=== PATIENT | female | born 1955 | race Caucasian/White ===

== ENCOUNTER → 2016-12-05 | Outpatient (CLI) | payer OTHER ==
--- NOTE | 2016-12-06 07:54 | MAMMOGRAPHY REPORT ---
BILATERAL DIGITAL SCREENING MAMMOGRAM TOMOSYNTHESIS WITH CAD: 12/05/2016 CLINICAL HISTORY: Routine screening. Patient has no complaints. TECHNIQUE: Bilateral breast tomosynthesis in addition to standard 2D mammography was performed. Curre nt study was also evaluated with a Computer Aided Detection (CAD) system. COMPARISON: Comparison is made to exams dated: 11/04/2015 mammogram, 07/03/2013 mammogram, 07/27/2010 [facility], 04/28/2007, 04/28/2007, and 04/28/2007. BREAST COMPOSITION: There are scattered areas of fibroglandular density in both breasts. FINDINGS: There are stable nodular asymmetries in the left breast. No new suspicious mass, architec tural distortion or cluster of microcalcifications is seen. IMPRESSION: ACR BI-RADS CATEGORY 1: NEGATIVE There is no mammographic evidence of malignancy. A 1 year screening mammogram is recommended. The pa tient will receive written notification of the results. Approximately 10% of breast cancers are not detected with mammography. A negative mammographic report should not delay biopsy if a clinically suggestive mass is present. Bere Aquino M.D. ay/:12/05/2016 12:44:08 Medical Billing Coder: Kailey Merritt [facility] letter sent: Normal 1/2 BI-RADS Code: ACR BI-RADS Category 1: Negative
== END | disposition home or self-care (01) ==
LOC: C.MAMM 12:20
PROVIDERS: ATTEND Obstetrics & Gynecology
DX: Z12.31 Encounter for screening mammogram for malignant neoplasm of breast (principal)

== ENCOUNTER → 2016-12-14 | Outpatient (CLI) | payer OTHER | END | disposition home or self-care (01) | LOC: C.PAPS 14:09 | PROVIDERS: ATTEND Obstetrics & Gynecology | DX: Z01.419 Encounter for gynecological examination (general) (routine) without abnormal findings (principal) ==

== ENCOUNTER 2019-12-23 10:33 | Observation (INO) ==
--- NOTE | 2019-11-18 16:20 | PAT Medication Instructions ---
Medication Instructions Date of Service November 18, 2019 Home Medications meloxicam 7.5 mg tablet 7.5 mg PO QAM fiber 1 dose PO DAILY multivitamin 1 tab PO QAM spironolacton-hydrochlorothiaz 1 tab PO QPM ASK your surgeon for instructions meloxicam 7.5 mg tablet 7.5 mg PO QAM DO NOT take the morning of surgery fiber 1 dose PO DAILY multivitamin 1 tab PO QAM Take evening before surgery spironolacton-hydrochlorothiaz 1 tab PO QPM OTHERWISE NOTHING TO EAT OR DRINK AFTER MIDNIGHT Other Notes If you have any questions please call us at [phone] or [phone] or [phone] or [phone]
--- NOTE | 2019-11-19 12:35 | Anesthesiology Consultation ---
Date of Service November 19, 2019 Assessment & Plan (1) Encounter for pre-operative examination: Chart Review Chart Review: Acceptable Risk for Surgery (pending preop Covid testing ) and Patient seen in Pre Admission Testing Instructed patient to not travel out of state unless under emergent circimstances. Educated patient to follow up with surgeon's office regarding Covid testing. Educated on importance of self quarantining, social distancing and wearing mask in public both for the patient and household contacts. Teaching & Discussion Pre-Anesthesia Teaching/Discussion Notes: Instructed NPO after midnight before surgery,except medications with 15 cc of water. Medication instructions provided according to the PAT guidelines. History Surgery Operation Date: 12/23/19 10:55 Proposed Procedures p Right Total Knee Arthroplasty - Sukh Garcia MD Height/Weight Height: 5 ft 8 in Weight: 128.5 kg Allergies Allergy/AdvReac Type Severity Reaction Status Date / Time naproxen [From Naprosyn] Allergy Unknown Verified 11/18/19 11:21 Penicillins Allergy Rash Verified 11/18/19 11:21 Medications Home Medications Medication Instructions Recorded Confirmed Last Taken meloxicam 7.5 mg tablet 7.5 mg PO QAM 06/08/19 11/18/19 Unknown fiber 1 dose PO DAILY 11/18/19 11/18/19 Unknown multivitamin 1 tab PO QAM 11/18/19 11/18/19 Unknown spironolacton-hydrochlorothiaz 1 tab PO QPM 11/18/19 11/18/19 Unknown Past Medical History Medical History Fluid retention in legs reason for spironolactone-hctz Frequent UTI No current issues GERD (gastroesophageal reflux disease) diet controlled Osteoarthritis Exercise / Class Metabolic Activity II 4-5 Yardwork/Stairs/Walk up hill (one flight of stairs - no chest pain or SOB ) Past Family History Family History Son , Passed 2006 @ 33 yo No problems noted. Other No family history of adverse response to anesthesia Past Surgical History Surgical History H/O wisdom tooth extraction History of cholecystectomy History of D&C Past Anesthesia History No Hx of Anesthesia Complications and No Family Hx of Anesthesia Complications History of PONV No Hx of PONV and Hx of Motion Sickness (usually in a boat on the ocean ) Social History Smoking Status: Former smoker Do You Dip or Chew Tobacco: No Smoking End Date: 40 years ago Hx Alcohol Use: No Hx Substance Use: No Review of Systems Patient denies chest pain, shortness of breath, dyspnea on exertion, cough, wheezing, palpitations. No hx of seizures, stroke, OH, apnea/snoring. No hx of blood clots or blood transfusions Physical Exam Vital Signs VITALS BP 118/66 P 68 TEMP 98.2 SP02 94% RESP 16 Constitutional + morbidly obese; no acute distress ENMT Mouth: + small oral opening; no TMJ clicking Thyromental Distance: > or= 3.5 Finger Breadths (3.5) Mallampati Class: I Missing molars Neck + thick neck; neck extension not limited Respiratory normal respiratory effort; no respiratory distress Auscultation: lungs clear to auscultation bilaterally; no wheezes Cardiovascular Rate/Rhythm: regular rate and regular rhythm Heart Sounds: no murmur Vessels: no carotid bruit Musculoskeletal Spine: no pain with cervical ROM Neurologic moves all extremities Psychiatric Orientation: alert Testing Laboratory Results 11/19/19 12:46 11/19/19 13:35 PT 10.5 Seconds (9.0-12.0) 11/19/19 12:46 INR 1.0 (0.9-1.1) 11/19/19 12:46 APTT 26.8 Seconds (21.0-31.0) 11/19/19 12:46 Blood Type O Positive 11/19/19 12:46 Antibody Screen NEGATIVE 11/19/19 12:46 Electrocardiogram Date: 11/19/19 Findings: + NSR @ (69) Chest X-Ray Date: 11/19/19 Findings: + NAD There is mild elevation of the right hemidiaphragm and bibasilar atelectasis
--- NOTE | 2019-11-19 13:10 | XRay Report ---
TWO VIEW CHEST CLINICAL HISTORY: Preoperative examination. FINDINGS: PA and lateral chest radiographs are obtained. No prior studies are available for compariso n at the time of dictation. The cardiomediastinal silhouette is unremarkable noting atherosclerotic calcification of the thoracic aorta. There is mild elevation of the right hemidiaphragm and bibasilar atelectasis. No airspace consolidation or pleural effusion is seen. There is no pneumothorax. The sk eletal structures are osteopenic. The bony thorax appears intact. Degenerative changes noted througho ut the thoracic spine and in the left shoulder. IMPRESSION: No active disease in the chest. ACT 112: Negative or not required by law. Electronically signed by: Paresh Bonilla M.D. 11/19/2019 1:08 PM
[2019-11-19 14:13] LABS: Basophils # (auto) 0.02 K/uL (0-0.2); Basophils % (auto) 0.3 %; Eosinophils % (auto) 1.6 %; Immature Granulocytes # (auto) 0.02 K/uL (0.00-0.02); Immature Granulocytes % (auto) 0.3 %; Lymphocytes # (auto) 1.16 K/uL (1.2-3.4); Lymphocytes % (auto) 18.5 %; Mean Corpuscular Hemoglobin 29.8 pg (25-34); Mean Corpuscular Volume 85.1 fL (80-100); Mean Platelet Volume 11.3 fL (7.4-10.4); Monocytes # (auto) 0.52 K/uL (0.11-0.59); Monocytes % (auto) 8.3 %; Neutrophils # (auto) 4.44 K/uL (1.4-6.5); Platelet Count 304 K/uL (130-400); RDW Coefficient of Variation 14.2 % (11.5-14.5); RDW Standard Deviation 44.2 fL (36.4-46.3); White Blood Count 6.26 K/uL (4.8-10.8)
[2019-11-19 14:23] LABS: BUN Creatinine Ratio 15.9 (10-20); Calcium 9.3 mg/dl (8.5-10.1); Creatinine Clr Calc Pharmacy 103.2 ml/min; Est GFR (African American) 93.9; Potassium 3.9 mmol/L (3.5-5.1)
[2019-11-19 14:29] LABS: Partial Thromboplastin Time 26.8 Seconds (21.0-31.0); Prothrombin Time 10.5 Seconds (9.0-12.0)
--- NOTE | 2019-11-20 05:03 | Electrocardiogram Report ---
Test Reason : Blood Pressure : / mmHG Vent. Rate : 069 BPM Atrial Rate : 069 BPM P-R Int : 180 ms QRS Dur : 084 ms QT Int : 408 ms P-R-T Axes : 077 070 067 degrees QTc Int : 437 ms Normal sinus rhythm Normal ECG No previous ECGs available Confirmed by Elder Hurtado ([id number]) on 11/20/2019 5:02:54 AM Referred By: Sukh Garcia Confirmed By:Elder Hurtado
--- NOTE | 2019-12-19 13:23 | History and Physical Report ---
DATE OF ADMISSION: 12/23/2019 CHIEF COMPLAINT: Persistent right knee pain and discomfort. HISTORY OF PRESENT ILLNESS: The patient is a 64-year-old female who presents for surgical treatment of her right knee. She has a long history of right knee pain and discomfort. I have been following her for quite some time. She has been through extensive conservative treatment including injections which have become less successful over time. Last shot did not help much at all. Pain has become more disabling. The more she walks, the more it hurts. She has got a valgus deformity to her knee, which is worse with weightbearing and feels it is unstable. She would like to have her knee fixed. PAST MEDICAL HISTORY: 1. Gastroesophageal reflux disease. 2. Obesity with a BMI of 43. PAST SURGICAL HISTORY: Cholecystectomy. ALLERGIES: PENICILLIN, WHICH CAUSES A RASH. No breathing problems. CURRENT MEDICATIONS: Include; 1. Spironolactone once a day. 2. Meloxicam. SOCIAL HISTORY: A 64-year-old female. She is from [place]. Does not smoke. No alcohol intake. FAMILY HISTORY: Noncontributory. REVIEW OF HISTORY: Negative for diabetes, neurologic problem, vascular problems or bleeding disorders. No chest pain or shortness of breath. No history of DVT or PE. PHYSICAL EXAMINATION: GENERAL: Shows a pleasant, middle-aged female. Looks to be in pretty good health. HEENT: Benign. NECK: Supple with no lymphadenopathy. LUNGS: Clear to auscultation. HEART: Has a regular rate and rhythm. ABDOMEN: Soft, nontender, nondistended. EXTREMITIES: Grossly neurovascularly intact except as follows. Examination of the right leg reveals the patient ambulates independently. She has got valgus alignment to her knee, which is increased with weightbearing. She is tender over the lateral joint line. Small knee effusion. Range of motion is 5-10 degrees, show full extension to about 120 degrees of flexion. There is no hip pain. She is neurologically intact. X-RAYS: X-rays of the right knee reviewed. Shows advanced right knee DJD. She has got advanced lateral compartment disease, worse on the 40-degree flexion films. She has got osteophytes primarily in the lateral compartment. ASSESSMENT: A 64-year-old female with advanced right knee lateral compartment degenerative joint disease. She has failed conservative treatment and would like to have her right knee replaced. PLAN: We will take her to the operating room and do right total knee replacement. The risks and benefits of this procedure were explained to the patient including but not limited to DVT, PE, , infection, neurological injury, vascular injury, bleeding problem, pain, limited range of motion, stiffness, failure to relieve symptoms, incomplete relief of symptoms, need for further surgery in future, fracture, leg length inequality, nerve palsy, persistent pain. The patient understands and desires to proceed. Informed consent was obtained. As far as discharge plan, she is planning to be discharged home using [facility] home health program. She knows to hold her meloxicam 10 days preop. She has got some varicose veins, but no history of thrombosis. We will use aspirin and TEDs for DVT prophylaxis.
[~2019-12-23 10:33] MED LIST: ACETAMINOPHEN 500 MG TAB PO SCH; BUPIVACAINE 0.25% 30 ML VIAL ONE; BUPIVACAINE 0.5 % 5 MG/1 ML PF 10ML VIAL ONE; BUPIVACAINE LIPOSOME/PF 266 MG, BUPIVACAINE/EPINEPHRINE 50 ML, SODIUM CHLORIDE 0.9% 30 ... INFIL SCH; FAMOTIDINE 20 MG TAB PO SCH; GABAPENTIN 300 MG CAP PO SCH; LR 15ML/HR IV SCH; LR 60ML/HR IV SCH; METOCLOPRAMIDE HCL 10 MG TABLET PO SCH; TRANEXAMIC ACID 1,000 MG **IV Intra-op IV SCH
--- NOTE | 2019-12-23 11:09 | History & Physical Bridge Note ---
Date of Service December 23, 2019 History & Physical Bridge Note I have examined the patient, reviewed the History & Physical and in the interval since the performance of the History & Physical I have noted the following changes of clinical significance: no changes noted
[2019-12-23] MEDS ORDERED: CEFAZOLIN 3000MG/72.5 ML BAG IV ONE (11:37)
[2019-12-23] MEDS ORDERED: MIDAZOLAM HCL 1 MG/ML 2ML VIAL ONE ×3 (12:01→12:19)
[2019-12-23] MEDS ORDERED: ONDANSETRON INJ 2 MG/ML 2 ML VIAL IV PRN ×2 (12:05→17:07)
[2019-12-23] MEDS ORDERED: fentaNYL citrate 100 MCG/2 ML VIAL IV PRN (12:05)
[2019-12-23] MEDS ORDERED: ATROPINE SULFATE 0.1 MG/ML 10ML SYR IV PRN (12:05)
[2019-12-23] MEDS ORDERED: ePHEDrine sulfate 50 MG/ML AMP IV PRN (12:05)
[2019-12-23] MEDS ORDERED: PROPOFOL IV EMULSION 10 MG/ML 20 ML VIAL IV ONE (12:37)
[2019-12-23] MEDS ORDERED: LIDOCAINE HCL 2% 2 ML VIAL/AMP(20MG/ML) INFIL ONE (12:37)
[2019-12-23] MEDS ORDERED: BACITRACIN INJ 50,000 UNIT VIAL ONE (13:22)
[2019-12-23] MEDS ORDERED: BUPIVACAINE LIPOSOME 1.3% 266 MG/20 ML VIAL ONE (13:22)
[2019-12-23] MEDS ORDERED: SODIUM CHLORIDE 0.9% PF 50 ML VIAL ONE (13:22)
[2019-12-23] MEDS ORDERED: BUPIVACAINE/EPINEPHRINE 0.25% 1:200,000 30 ML VIAL ONE (13:22)
--- NOTE | 2019-12-23 15:32 | Post Operative Brief Note ---
PG Immediate Post Op with CF Date of Surgery December 23, 2019 Pre & Post Diagnosis Operation Date: 12/23/19 12:45 Pre-Op Diagnosis: Right Knee Degenerative Joint Disease, Knee Pain Post-Op Diagnosis: Right Knee Degenerative Joint Disease, Knee Pain I identified the patient and participated in the time-out.: Yes Procedure Operation Date: 12/23/19 12:45 Actual Procedures p Right Total Knee Arthroplasty(Right) - Sukh Garcia MD Surgeon Sukh Garcia MD Spray Maker Farida, [facility] Estimated Blood Loss 50 Findings Consistent with Post-Op Diagnosis Fluids 1600 cc Specimens Specimen Description: Permanent Specimen: A) Right Knee Bone and Tissue Drains Young Catheter Anesthesia Type Spinal MAC Complications none Disposition Accompanied Patient To Recovery: No Disposition: Recovery Room
--- NOTE | 2019-12-23 16:19 | XRay Report ---
TWO VIEWS RIGHT KNEE CLINICAL HISTORY: Postoperative examination. FINDINGS: AP and crosstable lateral portable views of the right knee are obtained. A right knee arthr oplasty is in near anatomic alignment. There has been undersurface remodeling of the patella. No acut e fracture is seen. There are expected postoperative changes around the knee including skin clips, so ft tissue edema, and subcutaneous gas. IMPRESSION: Expected postoperative changes status post right knee arthroplasty. No acute fracture is seen. ACT 112: Negative or not required by law. Electronically signed by: Paresh Bonilla M.D. 12/23/2019 4:18 PM
--- NOTE | 2019-12-23 16:29 | Anesthesiology Progress Note ---
Date of Service December 23, 2019 Anesthesia Post Procedure Vital Signs Vital Signs: Temp Pulse Resp BP Pulse Ox 12/23/19 16:25 70 14 148/68 H 96 12/23/19 16:15 70 14 120/62 95 12/23/19 16:05 72 17 124/69 93 12/23/19 15:55 70 12 106/66 95 12/23/19 15:45 75 18 111/57 L 99 12/23/19 15:39 36.8 C 76 18 119/58 L 98 12/23/19 11:53 88 16 148/71 H 95 12/23/19 11:01 36.8 C 93 H 20 143/84 H 93 Transfer of Care Handoff Completed per policy Notes Mental Status: alert / awake / arousable and participated in evaluation Patient Amnestic to Procedure: Yes Nausea / Vomiting: adequately controlled Pain: adequately controlled Airway Patency, RR, SpO2: stable & adequate BP & HR: stable & adequate Hydration State: stable & adequate Neuraxial Anesthesia: was administered and sensory block is resolving Anesthetic Complications: no major complications apparent and Pt Satisfied with anesthetic care
[2019-12-23] MEDS ORDERED: NALOXONE HCL 0.4 MG/1 ML VIAL/CARP IV PRN (17:07)
[2019-12-23] MEDS ORDERED: bisacodyL 10 MG SUPP PR PRN (17:07)
[2019-12-23] MEDS ORDERED: MAGNESIUM HYDROXIDE SUSP 30 ML UDC PO PRN (17:07)
[2019-12-23] MEDS ORDERED: METOCLOPRAMIDE HCL INJ 5 MG/ML 2 ML VIAL IV PRN (17:07)
[2019-12-23] MEDS ORDERED: ALUMINUM/MAGNESIUM SUSP 30 ML UDC PO PRN (17:07)
[2019-12-23] MEDS ORDERED: HYDROmorphone INJ 0.5 MG/0.5 ML SYR IV PRN (17:07)
[2019-12-23] MEDS: SODIUM CHLORIDE 0.9% 1000ML 1,000 ML IV SCH (17:28)
--- NOTE | 2019-12-23 17:33 | Operative Report ---
Post Operative Report Pre & Post Diagnosis Operation Date: 12/23/19 12:45 Pre-Op Diagnosis: Right Knee Degenerative Joint Disease, Knee Pain Post-Op Diagnosis: Right Knee Degenerative Joint Disease, Knee Pain I identified the patient and participated in the time-out.: Yes Procedure Operation Date: 12/23/19 12:45 Actual Procedures p Right Total Knee Arthroplasty(Right) - Sukh Garcia MD Surgeon Sukh Garcia MD Air Valve Repairer Farida, PAC Estimated Blood Loss 50 Findings Consistent with Post-Op Diagnosis Operative findings revealed advanced right knee DJD. She had fairly extensive grade 4 changes in all 3 compartments. Some slight eburnation of the lateral femoral condyle and little of the lateral tibial plateau. She had pretty extensive grade 4 changes with without eburnation of the medial compartment. She has significant joint effusion. Her clinical findings/anatomic findings at the time of surgery were significantly worse than the anticipated based on her radiographs. Fluids 1600 cc. Specimens Right knee sent for pathology. Drains None. Anesthesia Type Spinal MAC Complications none Disposition Accompanied Patient To Recovery: No Disposition: Recovery Room Indications Patient is a 64-year-old female has been followed for quite some time for right knee pain discomfort. She failed conservative care. X-rays revealed moderate to advanced knee DJD. She failed all conservative measures and was significantly debilitated by her disease. She elected proceed with total knee arthroplasty. Description of Procedure Operative implants consist of: 1. Biomet Vanguard size 65 right posterior stabilized femoral component. 2. Biomet size 71 tibial tray. 3. 10 mm posterior stabilized polyethylene insert. 4. 31 x 8 all poly-patella. The patient was taken to the operating room identified and placed on the op erating table supine position protectors were properly padded. IV antibiotics arrived by anesthesia team. A spinal anesthetic and abductor canal block had provided in the holding area. Young catheter was placed in sterile fashion. Right thigh turn was then placed in the right lower extremities and prepped and draped in usual sterile fashion. The right leg was elevated exsanguinated with use of an Esmarch and turns placed at 350 mmHg. An anterior approach to the right knee was then performed to longitudinal incision centered over the patella. Sharp dissection was cut through subcutaneous tissue down to the extensor mechanism. Medial parapatellar arthrotomy incision was made. Some subperiosteal dissection was carried out medially but the fat pad was dissected beneath patella tendon. Lateral patellofemoral ligament was released. The patella was subluxate laterally and the knee was flexed. The osteophytes were taken off distal femur for the ACL and PCL were then released from the distal femur and the tibia subluxate anteriorly. The external tibial alignment jig was then placed in the interface the tibia and adjusted 14 mm medially. Proximal tibial cut was made remove abou t 3 to 4 mm of bone from the medial side. We tried to not take too much bone due to her large size and poor bone quality and concern for component subsidence. The tibia was then sized to a size 71 in order to get maximum coverage and appropriate rotation. Attention drawn the femur. The distal femur then with a sharp drop with intramedullary canal was suction. A right 5 degree valgus cutting guide was placed. This femoral cutting block was pinned in place but distal femoral cut was made to take an additional 3 mm bone off distal femur. The femur was then sized to a size 65 for the AP cutting block was pinned parallel to the epicondylar axis which was 4 degrees of external rotation. The anterior cut, anterior chamfer, posterior cut, posterior chamfer cuts were made. Box cutting guide was placed and adjusted slightly lateral and the box cut was made. The knee was flexed. The remnants of the medial lateral menisci were excised. The osteophytes were taken off the posterior aspect of the femur. A trial femoral component was placed. The tibial tray was pinned in maximum external rotation and the drill and stem punch were used to create defect in proximal tip for the tibial tray. The knee was then trialed and the 10 mm insert fit most appropriately. Of note, we did release some the IT band and posterior capsule to release her lateral side which was tight initially. Great care was taken to protect the peroneal nerve at all times. Attention drawn the patella. The patella was cleaned of all/soft tissues. Patella thickness measured 23 mm in thickness was cut down to 14 but was sized to a size 31 patella. Locals were drilled for 31 patella. The lateral osteophytes removed. Patella button was placed. Knee was taken through range of motion patella tracked nicely with no thumbs test. Attention drawn to place the permanent components. All trial components removed. Bone plug was placed in the disc femur limit blood loss put a double batch Palacos G cement was mixed. A BiomD-Share Vanguard size 65 right posterior stabilized femoral component, a size 71 tibial tray, 10 mm Po stabilized polyethylene insert, and a 31 x 8 all poly-patella then cement in place. Knees brought out in full extension until cement hardened. Final cement check was then performed. Pericapsular tissues were injected with total 100 cc of combination twice of Exparel, 30 cc normal saline, 50 cc of quarter percent Marcaine with epinephrine. Patient did receive 1 g tranexamic acid. The tendon was then let down for final tourniquet time 61 minutes. Hemostasis assured use electrocautery. Extensor mechanism then closed with combination 1 PDS suture #1 Vicryl suture in [id number] fashion. Extensor mechanism checked found to be intact the subcutaneous tissue then closed with 2 Dexon suture in a buried interrupted fashion skin was closed skin jeana. Leg was then cleaned and dried a sterile dressing composed Xeroform, 4 x 4's, sterile cast padding, Colin bandage were applied. The patient was then transferred to the recovery room in stable condition. The patient tolerated procedure well no complications. Cb Iqbal my physician zoning assistant, was present for the entire procedure. His presence and assistance was required for proper positioning, prepping and draping, surgical exposure, performing the technical aspects of the operation, implanting the implants, closing the wound, and placement of the sterile bandage. I attest to the content of the Intraoperative Record and any orders documented therein. Any exceptions are noted below.
[2019-12-23] MEDS: KETOROLAC TROMETHAMINE 15 MG/ML VIAL IV SCH ×2 (17:37→23:41)
[2019-12-23] MEDS: Scopolamine CHECK PATCH PLACEMENT SCH ×2 (17:38→23:41)
[2019-12-23] MEDS: FERROUS GLUCONATE 324 MG TAB PO SCH (18:15)
[2019-12-23] MEDS: ASCORBIC ACID 500 MG TAB PO SCH (18:15)
[2019-12-23] MEDS: SENNA 8.6 MG TAB PO SCH (20:50)
[2019-12-23] MEDS: DOCUSATE SODIUM 100 MG CAP PO SCH (20:50)
[2019-12-23] MEDS: ACETAMINOPHEN 500 MG TAB PO SCH (20:50)
[2019-12-23] MEDS: TAPENTADOL HCL ER 50 MG TABCR PO SCH (20:50)
[2019-12-23] MEDS: SPIRONOLACTONE/HCTZ 25-25 PO SCH (20:50)
[2019-12-23] MEDS: ASPIRIN 81 MG ECTAB PO SCH (20:50)
[2019-12-23] MEDS: CEFAZOLIN 2000MG 2,000 MG/15 ML SYR IV SCH (21:10)
[2019-12-23] MEDS ORDERED: TRANEXAMIC ACID / 0.7% NACL 1,000 MG/100 ML BAG IV SCH (21:35)
[2019-12-23] MEDS: OXYCODONE HCL IR 5 MG TAB (IMMEDIATE RELEASE) PO PRN (23:40)
[2019-12-24] MEDS: SODIUM CHLORIDE 0.9% 1000ML 1,000 ML IV SCH (00:15)
[2019-12-24] MEDS: KETOROLAC TROMETHAMINE 15 MG/ML VIAL IV SCH ×3 (05:21→17:15)
[2019-12-24] MEDS: ACETAMINOPHEN 500 MG TAB PO SCH ×3 (05:21→21:34)
[2019-12-24] MEDS: OXYCODONE HCL IR 5 MG TAB (IMMEDIATE RELEASE) PO PRN ×3 (05:21→13:52)
[2019-12-24] MEDS: CEFAZOLIN 2000MG 2,000 MG/15 ML SYR IV SCH (05:22)
[2019-12-24 06:07] LABS: Hematocrit (blood only) 35.6 % (37-47); Hemoglobin 12.5 g/dL (12.0-16.0); Mean Corpuscular Hemoglobin 29.9 pg (25-34); Mean Corpuscular Hgb Conc 35.1 g/dL (32-36); Mean Corpuscular Volume 85.2 fL (80-100); Mean Platelet Volume 10.6 fL (7.4-10.4); Platelet Count 256 K/uL (130-400); RDW Coefficient of Variation 14.4 % (11.5-14.5); RDW Standard Deviation 44.4 fL (36.4-46.3); Red Blood Count 4.18 M/uL (4.2-5.4); White Blood Count 10.06 K/uL (4.8-10.8)
[2019-12-24 06:40] LABS: Creatinine Clr Calc Pharmacy 81.9 ml/min; Est GFR (African American) 71.9; Est GFR (Non-African American) 62.1; Potassium 3.3 mmol/L (3.5-5.1)
--- NOTE | 2019-12-24 07:18 | Orthopedic Progress Note ---
Date of Service December 24, 2019 Assessment & Plan (1) Status post total right knee replacement: Seen and examined by Dr. Garcia today. Pain is controlled. continue pt/ot, wbat dvt prophylaxis: teds, scds, , aspirin hypokalemia: will supplement potassium today d/c planning: likely home tomorrow with home health Admission and Anticipated Discharge Date Admission Date: December 23, 2019 Subjective 64 y/o female POD #1 from right total knee replacement. She's doing pretty well. pain is reasonably controlled. No chest pain or shortness of breath. Physical Exam Physical Exam: Alert and oriented. NAD. Right leg: dressings clean, dry, intact. NVI. Able to dorsiflex and plantarflex. Results & Data ([facility]) Vital Signs (Past 12 Hours) Vital Signs Temp Pulse Resp BP Pulse Ox 12/24/19 07:00 37.3 C 72 16 112/70 95 12/24/19 03:34 36.7 C 69 14 127/71 93 12/24/19 00:00 36.8 C 70 18 134/78 98 12/23/19 20:28 37.1 C 72 16 127/74 97 PG Care Time/CCT Total # of Minutes Spent Total Time Spent with Patient: Total time spent is greater than 50% in coord ination of care (as documented) at patient's floor/unit and/or counseling patient: Coding Level of Care Code None Diagnoses Status post total right knee replacement Z96.651
[2019-12-24] MEDS ORDERED: POTASSIUM CHLORIDE 20 MEQ TABCR PO ONE (07:19)
[2019-12-24] MEDS: MULTIVITAMIN TAB PO SCH (08:39)
[2019-12-24] MEDS: CALCIUM POLYCARBOPHIL 625MG TAB PO SCH (08:39)
[2019-12-24] MEDS: ASCORBIC ACID 500 MG TAB PO SCH ×2 (08:39→17:15)
[2019-12-24] MEDS: FERROUS GLUCONATE 324 MG TAB PO SCH ×2 (08:39→17:15)
[2019-12-24] MEDS: ASPIRIN 81 MG ECTAB PO SCH ×2 (08:40→20:11)
[2019-12-24] MEDS: DOCUSATE SODIUM 100 MG CAP PO SCH ×2 (08:40→20:10)
[2019-12-24] MEDS ORDERED: MULTIVITAMIN TAB PO SCH (09:00)
[2019-12-24] MEDS: TAPENTADOL HCL ER 50 MG TABCR PO SCH ×2 (09:01→20:10)
[2019-12-24] MEDS: Scopolamine CHECK PATCH PLACEMENT SCH ×2 (09:01→16:10)
[2019-12-24] MEDS ORDERED: POTASSIUM CHLORIDE 20 MEQ TABCR PO SCH (18:00)
[2019-12-24] MEDS: SPIRONOLACTONE/HCTZ 25-25 PO SCH (20:10)
[2019-12-24] MEDS: SENNA 8.6 MG TAB PO SCH ×2 (20:11→21:39)
[2019-12-25] MEDS: KETOROLAC TROMETHAMINE 15 MG/ML VIAL IV SCH ×3 (00:06→11:09)
[2019-12-25] MEDS: Scopolamine CHECK PATCH PLACEMENT SCH ×2 (00:06→07:17)
[2019-12-25] MEDS: ACETAMINOPHEN 500 MG TAB PO SCH (05:01)
[2019-12-25 06:17] LABS: BUN Creatinine Ratio 13.8 (10-20); Calcium 7.9 mg/dl (8.5-10.1); Creatinine Clr Calc Pharmacy 107.7 ml/min; Est GFR (African American) 100.2; Est GFR (Non-African American) 86.4; Potassium 3.8 mmol/L (3.5-5.1)
[2019-12-25] MEDS: OXYCODONE HCL IR 5 MG TAB (IMMEDIATE RELEASE) PO PRN (07:12)
[2019-12-25] MEDS: ASPIRIN 81 MG ECTAB PO SCH (07:15)
[2019-12-25] MEDS: DOCUSATE SODIUM 100 MG CAP PO SCH (07:15)
[2019-12-25] MEDS: CALCIUM POLYCARBOPHIL 625MG TAB PO SCH (07:15)
[2019-12-25] MEDS: FERROUS GLUCONATE 324 MG TAB PO SCH (07:16)
[2019-12-25] MEDS: ASCORBIC ACID 500 MG TAB PO SCH (07:16)
[2019-12-25] MEDS: MULTIVITAMIN TAB PO SCH (07:16)
[2019-12-25] MEDS: TAPENTADOL HCL ER 50 MG TABCR PO SCH (07:22)
--- NOTE | 2019-12-25 07:38 | Progress Notes ---
DATE: 12/25/2019 SUBJECTIVE: A 64-year-old white female postop day 2 from right knee replacement. She is doing pretty well. Pretty painful after therapy yesterday, but responded to the pain medicine and doing pretty well this morning. No chest pain or shortness of breath. Not feeling dizzy or lightheaded. OBJECTIVE: VITAL SIGNS: Temperature 36.8. Vital signs stable. EXTREMITIES: Examination of the right leg reveals the leg to be well aligned. Dressing is clean, dry and intact. No significant drainage. Calf is soft and supple. She is neurologically intact. ASSESSMENT: A 64-year-old white female postop day 2 from a right knee replacement, doing well. Pain is controlled. She is neurologically intact. PLAN: 1. DVT prophylaxis including thigh-high TEDs, SCDs, and aspirin twice a day. 2. PT/OT. Weightbear as tolerated. Right total knee protocol. 3. Pain control, doing well with current pain regimen. 4. Disposition: Plan to discharge to home with some home health later today.
--- NOTE | 2019-12-28 16:28 | Discharge Summary ---
Date of Service December 28, 2019 Admission HPI Per Admitting Provider Documented in the H & P Admission Exam (Per Admitting) Constitutional Documented in the H & P Discharge Data Consultations 12/23/19 17:07 Consult Case Management - Discharge Planning Routine Procedures Performed Operation Date: 12/23/19 12:45 Actual Procedures p Right Total Knee Arthroplasty(Right) - Sukh Garcia MD Hospital Course (1) Status post total right knee replacement: This patient is a 64 year old female admitted on 12/23/19 and underwent total knee replacement. She tolerated the procedure well and there were no complications. Transferred to the PACU post op and later to the orthopedic floor for further care. She was given ancef for antibiotic prophylaxis. She was also given BULMARO stockings, SCDs, and aspirin for DVT prophylaxis. Hemoglobin, hematocrit, and vital signs were monitored during her hospital stay and remained stable. Did not require any blood transfusions. There were no complications during their hospital stay. She did receive potassium supplement for hypokalemia By post op day #2 the patient was tolerating a regular diet, pain was reasonably controlled with oral pain medicine, and she was participating in physical therapy. On post op day #2 the patient was discharged home and set up with home health care. She was given printed discharge instructions including prescriptions for extra strength tylenol, aspirin, and oxycodone. Continue physical therapy, weight bearing as tolerated. Continue BULMARO stockings. Follow up approximately 2 weeks post op or sooner if there are problems or concerns. Coding Level of Care Code None Diagnoses Status post total right knee replacement Z96.651
== END 2019-12-25 11:20 | disposition home or self-care (01) ==
LOC: 3E 10:33 → ASU 10:33

== ENCOUNTER 2022-06-15 08:06 | Observation (INO) ==
--- NOTE | 2022-05-10 09:20 | PAT Medication Instructions ---
Medication Instructions Date of Service May 10, 2022 Home Medications Medication Instructions Recorded clindamycin HCl 300 mg capsule 300 mg PO ONCE 1 day #2 caps 04/11/21 fiber 1 dose PO DAILY multivitamin 1 tab PO QAM spironolactone 25 mg-hydrochlorothiazide 25 mg tablet 1 tab PO QPM clindamycin HCl 300 mg capsule 300 mg PO ONCE Continue as directed clindamycin HCl 300 mg capsule 300 mg PO ONCE DO NOT take the morning of surgery fiber 1 dose PO DAILY multivitamin 1 tab PO QAM Take evening before surgery spironolactone 25 mg-hydrochlorothiazide 25 mg tablet 1 tab PO QPM Other Notes NOTHING TO EAT OR DRINK AFTER MIDNIGHT. If you have any questions please call us at [phone] or [phone] or [phone] or [phone]
--- NOTE | 2022-05-18 10:43 | Anesthesiology Consultation ---
Date of Service May 18, 2022 Assessment & Plan (1) Encounter for pre-operative examination: - COVID screening: Per assessment on 05/18: No known COVID-19 positive contacts or current COVID-19 related symptoms. Travel screen negative. Patient vaccinated. At surgeon discretion if preop Covid testing being done. - S/P Right TKA (12/23/19): SAB at L4-5 (x1 attempt) + PNB at [facility]. No issues noted per post-op anesthesia progress note. - Outpatient joint assessment: Pt currently scheduled for inpatient pathway. If surgeon requests review for outpatient joint pathway, patient is not recommended candidate for outpatient joint program from anesthesia standpoint. Chart Review Chart Review: Acceptable Risk for Surgery and Patient seen in Pre Admission Testing Teaching & Discussion Pre-Anesthesia Teaching/Discussion Notes: Instructed NPO after midnight before surgery,except medications with 15 cc of water. Medication instructions provided according to the PAT guidelines. History Surgery Operation Date: 06/15/22 07:00 Proposed Procedures p Left Total Knee Arthroplasty - Sukh Garcia MD Height/Weight Height: 5 ft 8 in Weight: 130 kg Allergies Allergy/AdvReac Type Severity Reaction Status Date / Time Penicillins Allergy Intermediate Rash Verified 05/10/22 08:03 Medications Home Medications Medication Instructions Recorded Confirmed Last Taken fiber 1 dose PO DAILY 11/18/19 05/10/22 12/22/19 multivitamin 1 tab PO QAM 11/18/19 05/10/22 12/22/19 spironolactone 25 1 tab PO QPM 11/18/19 05/10/22 12/22/19 mg-hydrochlorothiazide 25 mg tablet clindamycin HCl 300 mg capsule 300 mg PO ONCE 1 day #2 caps 04/11/21 05/10/22 Unknown Past Medical History Medical History Fluid retention in legs reason for spironolactone-hctz Frequent UTI No current issues GERD (gastroesophageal reflux disease) diet controlled Heartburn diet control Left knee DJD Osteoarthritis Venous insufficiency compression hose Exercise / Class Metabolic Activity III < 4 Walking/Shop/Light housework Past Family History Family History Son , Passed 2006 @ 33 yo No problems noted. Other No family history of adverse response to anesthesia Past Surgical History Surgical History H/O wisdom tooth extraction History of cholecystectomy History of D&C History of total knee replacement Right TKA (12/23/19): SAB at L4-5 (x1 attempt) + PNB at [facility]. No issues noted per post-op anesthesia progress note. Past Anesthesia History No Hx of Anesthesia Complications and No Family Hx of Anesthesia Complications History of PONV No Hx of PONV and Hx of Motion Sickness Social History Smoking Status: Never smoker Do You Dip or Chew Tobacco: No Hx Alcohol Use: No Hx Substance Use: No substance use type: does not use Review of Systems Patient denies chest pain, shortness of breath, fever, chills, cough, wheezing, palpitations. Physical Exam Vital Signs VITALS BP 136/75 P 68 TEMP 98.1 SP02 97%RA RESP 18 PHYSICAL Full cervical extension range of motion. Full TMJ range of motion. TMD 3 finger breaths Mallampati Score 1 Dentition: intact Lungs: clear throughout to auscultation Cardiac: regular rate and rhythm, no murmurs noted Spine: normal Carotid arteries: negative bruit Extremities: no edema Lab Results Anesthesia Preop Results Results Anesthesia Widget: WBC 5.62 K/ul (4.8-10.8) 05/18/22 Hgb 14.3 g/dl (12.0-16.0) 05/18/22 Hct 41.2 % (34.1-44.9) 05/18/22 Plt 255 K/uL (130-400) 05/18/22 Na 138 mmol/L (136-145) 05/18/22 K 4.4 mmol/L (3.5-5.1) 05/18/22 Cl 103 mmol/L (98-107) 05/18/22 CO2 29 mmol/L (21-32) 05/18/22 BUN 16 mg/dl (6-23) 05/18/22 Creat 0.76 mg/dl (0.6-1.2) 05/18/22 Glucose Level 104 mg/dl (70-99(Fasting)) H 05/18/22 PT 10.3 Seconds (9.0-12.0) 05/18/22 PTT 24.8 Seconds (21.0-31.0) 05/18/22 INR 1.0 (0.9-1.1) 05/18/22 Blood Type O Positive 05/18/22 Antibody Screen NEGATIVE 05/18/22 Testing Electrocardiogram Date: 05/18/22 NSR at 63bpm. Chest X-Ray Date: 05/18/22 FINDINGS: Cardiac mediastinal and hilar silhouettes are within normal limits. No pneumothorax, pleural effusion, airspace consolidation or overt pulmonary edema. Degenerative changes of the shoulders and spine. Cholecystectomy. IMPRESSION: No acute process. COVID-19 Risk Screen Screening Information COVID-19 Screen Date: 05/18/22 Exposure 21 Days Family/Household +COVID Last 21 Days: No Exposure 10 Days Any COVID Exposure Last 10 Days: No Symptoms Last 10 Days Experienced COVID Sx Last 10 Days: No + COVID 0-90 Days COVID + in Last 0-90 Days: No
--- NOTE | 2022-06-09 18:32 | History and Physical Report ---
CHIEF COMPLAINT: Left knee pain. HISTORY OF PRESENT ILLNESS: The patient is a 66-year-old female well known to me from previous right knee replacement done 2-1/2 years ago. The right knee is doing well. She continues to be bothered by left knee pain and discomfort that has gradually gotten worse over time. She has had conservative care including oral medicines and injection, which provided with pretty minimal relief. Pain is hannah bal. The more she is up and on it, the more it hurts. She limps more as the day goes on. She would like to have her left knee fixed. PAST MEDICAL HISTORY: Past medical history is significant for: 1. Gastroesophageal reflux disease. 2. Obesity, BMI of 44. 3. Low back pain/sciatica. PAST SURGICAL HISTORY: Includes; 1. Cholecystectomy. 2. Right knee replacement done 12/23/2019. ALLERGIES: PENICILLIN, WHICH CAUSES A RASH A CHILD. No respiratory problems. CURRENT MEDICATIONS: Include; 1. Vitamins. 2. Unspecified diuretic. SOCIAL HISTORY: She is a 66-year-old female. She is . Does not smoke. No alcohol intake. FAMILY HISTORY: Noncontributory. REVIEW OF SYSTEMS: Negative for diabetes, neurologic problem, vascular problems or bleeding disorder s. No chest pain or shortness of breath. No history of DVT or PE. PHYSICAL EXAMINATION: GENERAL: Shows a pleasant middle-aged female. Looks to be in pretty good health. HEENT: Benign. NECK: Supple. No lymphadenopathy. LUNGS: Clear to auscultation. HEART: Has a regular rate and rhythm. ABDOMEN: Soft, nontender, nondistended. EXTREMITIES: Grossly neurovascularly intact except as follows: Examination of both knees reveals the patient walks independently. Examination of the right knee rev eals a well-healed incision. Neutral alignment through the knee. Moderate soft tissue envelope. Ra nge of motion 115. No instability.: Examination of the left knee reveals varus alignment to her kne e. Tender over the medial joint line. Moderate soft tissue envelope. Small knee effusion. Range o f motion 5-125. No instability. No pain with hip motion. X-RAYS: X-rays of the left knee are reviewed. It shows advanced left knee tricompartment DJD. She has got near complete loss of her medial joint space. She has got osteophytes in all 3 compartments. The right knee replacement looks to be in good position. ASSESSMENT: A 66-year-old female with several medical comorbidities including gastroesophageal reflu x disease, obesity and low back pain and sciatica, 2-1/2 years out from a right knee replacement with advanced left knee degenerative joint disease. She has failed conservative treatment. She would li ke to have her left knee replaced. PLAN: We will take her to the operating room and do left total knee replacement. Risks and benefits of this procedure were explained to the patient and include but not limited to DVT, PE, , infec tion, neurological injury, vascular injury, bleeding problem, pain, limited range of motion, persiste nt pain, need for revision surgery. The patient understands and desires to proceed. She is planning to be discharged to home with [facility] and her 's help. Job ID: [id number]
[~2022-06-15 08:06] MED LIST changes: +ALLERGY Noted to ORDERED Medication SCH; +CeleBREX 200 MG CAP PO SCH; -GABAPENTIN 300 MG CAP PO SCH; -LR 15ML/HR IV SCH; +LR 500ML BOLUS, THEN 15ML/HR IV SCH; +Scopolamine 1 MG TDSY TD SCH
--- NOTE | 2022-06-15 08:50 | History & Physical Bridge Note ---
Date of Service June 15, 2022 History & Physical Bridge Note I have examined the patient, reviewed the History & Physical and in the interval since the performance of the History & Physical I have noted the following changes of clinical significance: no changes noted
[2022-06-15] MEDS ORDERED: Nursing to Pharmacy Communication STA (08:55)
[2022-06-15] MEDS ORDERED: fentaNYL citrate 100 MCG/2 ML VIAL IV PRN (09:20)
[2022-06-15] MEDS ORDERED: ONDANSETRON INJ 2 MG/ML 2 ML VIAL IV PRN ×2 (09:20→14:25)
[2022-06-15] MEDS ORDERED: ATROPINE SULFATE 0.1 MG/ML 10ML SYR IV PRN (09:20)
[2022-06-15] MEDS ORDERED: ePHEDrine sulfate 50 MG/ML AMP IV PRN (09:20)
[2022-06-15] MEDS ORDERED: fentaNYL citrate 100 MCG/2 ML VIAL ONE (09:22)
[2022-06-15] MEDS ORDERED: MIDAZOLAM HCL 1 MG/ML 2ML VIAL ONE ×2 (09:22→11:33)
[2022-06-15] MEDS ORDERED: PROPOFOL IV EMULSION 10 MG/ML 20 ML VIAL IV ONE ×4 (09:22→13:12)
[2022-06-15] MEDS ORDERED: SODIUM CHLORIDE 0.9% PF 50 ML VIAL ONE (11:07)
[2022-06-15] MEDS ORDERED: BUPIVACAINE LIPOSOME 1.3% 266 MG/20 ML VIAL ONE (11:07)
[2022-06-15] MEDS ORDERED: BUPIVACAINE/EPINEPHRINE 0.25% 1:200,000 30 ML VIAL ONE (11:07)
[2022-06-15] MEDS ORDERED: ONDANSETRON INJ 2 MG/ML 2 ML VIAL ONE (11:28)
--- NOTE | 2022-06-15 13:25 | Operative Report ---
PG Post Operative Report Pre & Post Diagnosis Operation Date: 06/15/22 10:40 Pre-Op Diagnosis: Left Knee Degenerative Joint Disease Post-Op Diagnosis: Left Knee Degenerative Joint Disease I identified the patient and participated in the time-out.: Yes Procedure Operation Date: 06/15/22 10:40 Actual Procedures p Left Total Knee Arthroplasty - Sukh Garcia MD Surgeon Sukh Garcia MD Mathematics Improvement Teacher The [employer] Iqbal Estimated Blood Loss 50 Findings Consistent with Post-Op Diagnosis Operative findings revealed advanced left knee DJD. She did have grade 4 changes in the medial and patellofemoral compartments. It was just cartilage loss. No eburnation. Some small osteophytes medially. She had a varus deformity to her knee. Moderate soft tissue envelope. Moderate-sized joint effusion. Specimens Left knee sent for pathology. Anesthesia Type Spinal MAC Complications none Disposition Accompanied Patient To Recovery: No Indications Patient is 66-year-old female said a long history of bilateral knee pain discomfort describes gotten worse over time. She had a right knee replaced several years ago is done pretty well from this. She continued to be limited by left knee pain. That she failed conservative measures and elected proceed with total knee arthroplasty. Description of Procedure Operative implants consist of: 1. Biomet Vanguard size 65 left posterior stabilized femoral component. 2. Biomet size 71 tibial tray. 3. 10 mm posterior stabilized polyethylene insert. 4. 31 x 8 all Paller Li patella. The patient was taken the operating, identified, placed on the operating table supine position but all contact areas were properly padded. IV antibiotics arrived by anesthesia team. A spinal anesthetic and abductor canal block had be en provided in the holding area. Young catheter was placed in sterile fashion. A left thigh tent was then placed in the left lower extremities and prepped draped in usual sterile fashion. The left leg was elevated and exsanguinated with use of an Esmarch and the tourniquet was placed at 350 mmHg. An anterior posterior left knee was then performed through a longitudinal incision centered over the patella. Sharp dissection was carried through subcutaneous tissue down the extensor mechanism. A medial parapatellar throbbed incision was made. Some subperiosteal dissection was carried out medially. The fat pad was resected from Neath patella tendon. Lateral patellofemoral ligament was released. Patella subluxated laterally and the knee was flexed with the osteophytes taken off distal femur P the ACL PCL then released in the distal femur. The tibia subluxated anteriorly. External tibial alignment jig was then placed in the interface the tibia and adjusted 14 mm medially. Proximal tibial cut was made remove about 2 mm of bone from the most deficient aspect medial tibial plateau. Some osteophytes taken off medially and posterior medially. The tibia sized to a size 71. Attention drawn the femur. The distal femur stem with a sharp drill. Intramedullary canal was suction. A left 5 degree valgus cutting guide was placed. The distal femoral cutting block was pinned in place. This femoral cut was made to take an additional 3 mm bone off distal femur. The femur was then sized to a size 65. The AP cutting block was pinned parallel to the epicondylar axis which was 5 degrees of external rotation. Anterior cut, anterior chamfer, posterior cut, posterior chamfer cuts were made. The box cutting guide was placed in the just slight lateral box cut was made. The knee was flexed. The remnants of the medial and lateral menisci were excised with the osteophytes taken off the posterior aspect the femur. Trial femoral component was placed. Tibial tray was pinned in maximum external rotation and the drill and stem punch used. Defect in proximal tibia for the tibial tray. The knee was then trialed with a 10 mm insert fit most probably. Attention drawn the patella. The patella was cleaned of all soft tissues. Patella thickness measured 23 mm in thickness but was cut down to 14 to a size of a size 31 patella. The lug holes were drilled for the 31 patella. The lateral osteophytes removed. Patella button was placed. Knee was taken through range of motion patella tracked nicely with no thumbs test. Attention drawn to placing permanent components. Nupathe all trial components were removed. Bone plug was placed in the distal femur limit blood loss. Double batch Palacos G cement was mixed. Biomet Vanguard size 65 left posterior stabilized femoral component, size 71 tibial tray, a 10 mm posterior stabilized polyethylene insert, and a 31 x 8 all Paller patella then cemented in place. New spreadout in full extension total cement hardened. Final cement check was then performed. Pericapsular tissues were injected with total 100 cc of combination of 20 cc of Exparel, 30 cc normal saline, 50 cc of quarter percent Marcaine with epinephrine. Patient did receive 1 g tranexamic acid per the chart was let down for final tourniquet time of 58 minutes. Hemostasis assured with electrocautery. Extensor mechanism closed with combination of #1 PDS and #1 Vicryl sutures. Extensor mechanism checked and found be intact. Subcutaneous tissue was then closed with 2 Dexon suture in a buried interrupted fashion the skin was closed skin jeana. Leg was then cleaned and dried a sterile dressing was Xeroform, 4 fours, sterile ABD pad sterile cast padding and Colin bandage were applied. Patient then transferred to the recovery in stable condition. Patient tolerated procedure well and no complications. Cb Iqbal, my physician banking assistant, was present for the entire procedure. His assistance was essential and required for appropriate patient positioning, prepping and draping, surgical exposure, performing the technical details of the operation, placement the implants, closure of the wound, and placement of the sterile bandage. I attest to the content of the Intraoperative Record and any orders documented therein. Any exceptions are noted below.
--- NOTE | 2022-06-15 13:39 | XRay Report ---
TWO VIEWS LEFT KNEE CLINICAL HISTORY: Postoperative examination. FINDINGS: AP and crosstable lateral portable views of the left knee are obtained. A left knee arthrop lasty is in near anatomic alignment. There has been undersurface remodeling of the patella. No acute fracture is seen. There are expected postoperative changes around the knee including skin clips, soft tissue edema, and subcutaneous gas. IMPRESSION: Expected postoperative changes status post left knee arthroplasty. No acute fracture is s een. ACT 112: Negative or not required by law. Electronically signed by: Paresh Bonilla M.D. 06/15/2022 1:37 PM
--- NOTE | 2022-06-15 14:00 | Anesthesiology Progress Note ---
Date of Service June 15, 2022 Anesthesia Post Procedure Vital Signs Vital Signs: Temp Pulse Pulse Resp BP Pulse Ox O2 Del Method 06/15/22 13:50 74 13 118/96 96 Room Air 06/15/22 13:40 73 16 146/62 H 95 Room Air 06/15/22 13:30 71 15 131/61 99 Oxymask 06/15/22 13:22 36.4 C L 73 10 L 140/61 97 Oxymask 06/15/22 08:31 36.7 C 88 18 159/79 H 97 Room Air O2 Flow Rate 06/15/22 13:50 06/15/22 13:40 06/15/22 13:30 4 06/15/22 13:22 6 06/15/22 08:31 Pain Intensity Left Knee: Pain Intensity: 1 Transfer of Care Handoff Completed per policy Notes Mental Status: alert / awake / arousable and participated in evaluation Patient Amnestic to Procedure: Yes Nausea / Vomiting: adequately controlled Pain: adequately controlled Airway Patency, RR, SpO2: stable & adequate BP & HR: stable & adequate Hydration State: stable & adequate Neuraxial Anesthesia: was administered and sensory block is resolving Anesthetic Complications: no major complications apparent and Pt Satisfied with anesthetic care
[2022-06-15] MEDS ORDERED: ALUMINUM/MAGNESIUM SUSP 30 ML UDC PO PRN (14:25)
[2022-06-15] MEDS ORDERED: NON-FORMULARY MEDICATION (Amino Acids [Amino Acid] Capsule) PO SCH (14:25)
[2022-06-15] MEDS ORDERED: diphenhydrAMINE Capsule 25 MG CAP PO PRN (14:25)
[2022-06-15] MEDS ORDERED: bisacodyL 10 MG SUPP PR PRN (14:25)
[2022-06-15] MEDS ORDERED: HYDROmorphone INJ 0.5 MG/0.5 ML SYR IV PRN (14:25)
[2022-06-15] MEDS ORDERED: MAGNESIUM HYDROXIDE SUSP 30 ML UDC PO PRN (14:25)
[2022-06-15] MEDS ORDERED: NALOXONE HCL 0.4 MG/1 ML VIAL/CARP IV PRN (14:25)
[2022-06-15] MEDS ORDERED: METOCLOPRAMIDE HCL INJ 5 MG/ML 2 ML VIAL IV PRN (14:25)
[2022-06-15] MEDS ORDERED: INFLUENZA VACCINE HIGH DOSE PF 65+ 0.7 ML SYR IM ONE (14:30)
[2022-06-15] MEDS ORDERED: PNEUMOCOCCAL POLYSACCHARIDES 25 MCG/0.5 ML VIAL/SYR IM ONE (14:30)
[2022-06-15] MEDS: SODIUM CHLORIDE 0.9% 1000ML 1,000 ML IV SCH ×2 (15:09→22:16)
[2022-06-15] MEDS: Scopolamine CHECK PATCH PLACEMENT SCH ×2 (15:10→23:51)
[2022-06-15] MEDS: KETOROLAC TROMETHAMINE 15 MG/ML VIAL IV SCH ×2 (15:15→20:33)
[2022-06-15] MEDS: ACETAMINOPHEN 500 MG TAB PO SCH ×2 (15:16→22:16)
[2022-06-15] MEDS: oxyCODONE HCL IR 5 MG TAB (IMMEDIATE RELEASE) PO PRN ×2 (16:24→23:10)
[2022-06-15] MEDS: ASCORBIC ACID 500 MG TAB PO SCH (16:24)
--- NOTE | 2022-06-15 17:15 | Progress Notes ---
DATE OF SERVICE: 06/15/2022. SUBJECTIVE: A 66-year-old white female postop from a left knee replacement. Just starting to have s ome pain and discomfort in her leg. No chest pain or shortness of breath. Not feeling dizzy or ligh theaded. OBJECTIVE: VITAL SIGNS: Temperature 36.6. Vital signs are stable. PHYSICAL EXAMINATION: GENERAL: Shows a pleasant middle-aged female. She is sitting up in bed, looks pretty comfortable. LUNGS: Clear to auscultation. HEART: Regular rate and rhythm. ABDOMEN: Soft, nontender, nondistended. EXTREMITIES: Grossly neurovascularly intact except as follows. Examination of the left leg reveals the leg to be well aligned. Dressing is clean, dry and intact. She can dorsiflex and plantarflex her foot appropriately. She is neurologically intact. X-RAYS: X-rays of the left knee from recovery room were reviewed. It shows a left cemented posterio r stabilized total knee arthroplasty. Components looked to be in good position. No signs of problem s. ASSESSMENT: A 66-year-old female postop from a left knee replacement, doing well. Pain is controlle d. She is neurologically intact. PLAN: 1. DVT prophylaxis including thigh-high TEDs, SCDs, and aspirin twice a day. 2. PT, OT, weightbear as tolerated. Left total knee protocol. 3. Pain control, doing okay with current pain regimen. 4. IV antibiotics x24 hours. 5. Disposition: She is planning to be discharged to home with some home health once medically stabl e and adequately recovered. Job ID: [id number]
[2022-06-15] MEDS: ceFAZolin 2000MG 2,000 MG/15 ML SYR IV SCH (18:09)
[2022-06-15] MEDS ORDERED: TRANEXAMIC ACID / 0.7% NACL 1,000 MG/100 ML BAG IV SCH (19:15)
[2022-06-15] MEDS: DOCUSATE SODIUM 100 MG CAP PO SCH (20:32)
[2022-06-15] MEDS: TAPENTADOL HCL ER 50 MG TABCR PO SCH (20:32)
[2022-06-15] MEDS: ASPIRIN 81 MG ECTAB PO SCH (20:33)
[2022-06-15] MEDS ORDERED: SPIRONOLACTONE/HCTZ 25-25 PO SCH (21:00)
[2022-06-15] MEDS ORDERED: SENNA 8.6 MG TAB PO SCH (21:00)
[2022-06-16] MEDS: KETOROLAC TROMETHAMINE 15 MG/ML VIAL IV SCH ×2 (02:43→09:01)
[2022-06-16] MEDS: ceFAZolin 2000MG 2,000 MG/15 ML SYR IV SCH (02:43)
[2022-06-16] MEDS: oxyCODONE HCL IR 5 MG TAB (IMMEDIATE RELEASE) PO PRN ×2 (05:58→12:17)
[2022-06-16] MEDS: ACETAMINOPHEN 500 MG TAB PO SCH (05:58)
[2022-06-16 06:52] LABS: Hematocrit (blood only) 36.2 % (37.0-47.0); Hemoglobin 12.4 g/dl (12.0-16.0); Mean Corpuscular Hemoglobin 30.1 pg (25.0-34.0); Mean Corpuscular Hgb Conc 34.3 g/dL (32.0-36.0); Mean Corpuscular Volume 87.9 fL (80.0-100.0); Mean Platelet Volume 10.9 fL (9.4-12.4); Platelet Count 195 K/uL (130-400); RDW Coefficient of Variation 14.1 % (11.5-14.5); RDW Standard Deviation 45.1 fL (36.4-46.3); Red Blood Count 4.12 M/uL (4.20-5.40); White Blood Count 6.69 K/ul (4.8-10.8)
[2022-06-16 07:30] LABS: BUN Creatinine Ratio 16.1 (10-20); Creatinine Clr Calc Pharmacy 89.8 ml/min; Est GFR (African American) 79.9 ml/min; Est GFR (Non-African American) 68.9 ml/min; Potassium 3.7 mmol/L (3.5-5.1)
[2022-06-16] MEDS ORDERED: dexAMETHasone 10 MG in SYRINGE 0 ML IV SCH (08:00)
[2022-06-16] MEDS: ASCORBIC ACID 500 MG TAB PO SCH (08:58)
[2022-06-16] MEDS: ASPIRIN 81 MG ECTAB PO SCH (08:58)
[2022-06-16] MEDS: DOCUSATE SODIUM 100 MG CAP PO SCH (08:58)
[2022-06-16] MEDS: PSYLLIUM or GUAR GUM FIBER POWDER PACKET PO SCH ×2 (09:00→09:17)
[2022-06-16] MEDS ORDERED: DOCUSATE SODIUM/SENNA 50/8.6MG TAB PO SCH (09:00)
[2022-06-16] MEDS ORDERED: NON-FORMULARY MEDICATION (Multivitamin Tablet) PO SCH (09:00)
[2022-06-16] MEDS ORDERED: MULTIVITAMIN TAB PO SCH (09:00)
[2022-06-16] MEDS: Scopolamine CHECK PATCH PLACEMENT SCH (09:02)
[2022-06-16] MEDS: TAPENTADOL HCL ER 50 MG TABCR PO SCH (09:17)
--- NOTE | 2022-06-16 09:34 | Progress Notes ---
DATE OF SERVICE: 06/16/2022. SUBJECTIVE: A 66-year-old female, postoperative day 1 from a left knee replacement. She is doing pr everette well. Pain is controlled. She had a reasonable night. No chest pain or shortness of breath. Not feeling dizzy or lightheaded. OBJECTIVE: VITAL SIGNS: Temperature 36.7. Vital signs are stable. GENERAL: Shows a pleasant middle-aged female. She is sitting up in her bedside chair, looks pretty comfortable. EXTREMITIES: Examination of the left leg reveals the dressing to be clean, dry and intact. Leg is w ell aligned. She can dorsiflex and plantarflex her foot appropriately. She has got brisk refill. LABORATORY DATA: Hemoglobin 12.4. Hematocrit 36.2. Electrolytes are stable. ASSESSMENT: A 66-year-old female, postoperative day 1 from a left knee replacement, doing pretty wel l. Pain is controlled. She is neurologically intact. PLAN: 1. DVT prophylaxis includes thigh-high TEDs, SCDs, and aspirin twice a day. 2. PT, OT, weightbear as tolerated. Left total knee protocol. 3. Pain control, doing okay with current pain regimen. 4. Disposition: She is planning to be discharged to home with some home health once getting around safely and recovered. We will see how therapy goes today. Job ID: [id number]
--- NOTE | 2022-06-22 10:10 | Discharge Summary ---
Date of Service June 22, 2022 Discharge Data Procedures Performed Operation Date: 06/15/22 10:40 Actual Procedures p Left Total Knee Arthroplasty - Sukh Garcia MD Hospital Course (1) Status post total left knee replacement: This is a 66 year old patient admitted on 06/15/22 and underwent total knee arthroplasty. She tolerated the procedure well and there were no complications. Transferred to the PACU post op and later to the orthopedic floor for further care. She was given ancef for antibiotic prophylaxis. She was also given BULMARO stockings, SCDs, and aspirin for DVT prophylaxis. Hemoglobin, hematocrit, and vital signs were monitored during her hospital stay and remained stable. Did not require any blood transfusions. There were no complications during her hospital stay. By post op day #1 the patient was tolerating a regular diet, pain was reasonably controlled with oral pain medicine, and she was participating in physical therapy. On post op day #1 the patient was discharged home and set up with home health care. She was given printed discharge instructions including prescriptions for extra strength tylenol, aspirin, cefadroxil, ketorolac, zofran, senokot, and tramadol. Continue physical therapy, weight bearing as tolerated. Continue BULMARO stockings. Follow up approximately 2 weeks post op or sooner if there are problems or concerns. Coding Level of Care Code None Diagnoses Status post total left knee replacement Z96.652
== END 2022-06-16 15:07 | disposition home health service (06) ==
LOC: 3E 08:06 → ASU 08:06
DX: Z79.899 Other long term (current) drug therapy; Z20.822 Contact with and (suspected) exposure to COVID-19; Z88.0 Allergy status to penicillin; M17.12 Unilateral primary osteoarthritis, left knee; Z79.82 Long term (current) use of aspirin; Z96.651 Presence of right artificial knee joint